=== PATIENT | male | born 1990 | race African-American/Black ===

== ENCOUNTER 2020-06-20 01:41 | Emergency (ER) | payer OTHER ==
[~2020-06-20] VITALS: Ht 180.3 cm; Wt 140.9 kg
[2020-06-20 01:57] VITALS: TEMP 98.7
[2020-06-20] MEDS ORDERED: ADVIL200 MG PO (02:32)
[2020-06-20] MEDS ORDERED: AMOXICILLIN 8751 TAB PO (02:32)
[2020-06-20 02:55] VITALS: BP 148/87; PULSE 85
== END 2020-06-20 02:55 | disposition home or self-care (01) ==
LOC: COL.ER 01:41
DX: H66.92 Otitis media, unspecified, left ear (principal); Z86.16 Personal history of COVID-19